=== PATIENT | male | born 1975 | race Caucasian/White ===

== ENCOUNTER 2020-09-02 21:44 | Emergency (ER) | payer OTHER, BC ==
[~2020-09-02] VITALS: Ht 172.7 cm; Wt 117.7 kg
[2020-09-02 21:53] VITALS: BP 139/73; Ht 172.7 cm; Wt 117.7 kg
[2020-09-02] MEDS ORDERED: ALBUTEROL SULF8.5 GM INH (21:55)
[2020-09-02 22:24] LABS: BASOPHILS 0.4 % (0-2); HEMATOCRIT 46.9 % (42.0-54.0); HEMOGLOBIN 16.3 g/dL (13.5-17.5); MCH 29.6 pg (26.0-34.0); MCHC 34.7 g/dL (31.0-37.0); MCV 85.3 fL (80.0-100.0); MEAN PLATELET VOLUME 7.2 fL (7.4-10.4); MONOCYTES 6.9 % (2-11); NEUTROPHILS 65.7 % (40-80); PLATELET COUNT 254 10x3/uL (130-400); RBC 5.49 10x6/uL (4.20-6.10); RDW 13.8 % (11.5-14.5); WBC 6.7 10x3/uL (4.8-10.8)
[2020-09-02 22:34] LABS: ANION GAP 9.6 mmol/L (8-16); CALCIUM 8.4 mg/dL (8.5-10.1); CARBON DIOXIDE 31.2 mmol/L (21.0-32.0); CREATININE - SERUM 1.3 mg/dL (0.6-1.3); POTASSIUM - SERUM 3.8 mmol/L (3.5-5.1)
[2020-09-02 22:40] LABS: ALBUMIN 3.8 g/dL (3.4-5.0); BILIRUBIN - TOTAL 0.7 mg/dL (0.2-1.3); PROTEIN - SERUM 7.8 g/dL (6.4-8.2)
[2020-09-02 22:44] LABS: SARS-CoV-2 ANTIGEN NEGATIVE- SARS-COV-2 (NEGATIVE)
[2020-09-02 22:59] LABS: BILIRUBIN NEGATIVE (NEGATIVE); KETONE NEGATIVE (NEGATIVE); NITRITE NEGATIVE (NEGATIVE); UROBILINOGEN NORMAL mg/dL (< 2)
[2020-09-02 23:08] LABS: UDS - AMPHET NEGATIVE QUAL (NEGATIVE); UDS - BARB NEGATIVE QUAL (NEGATIVE); UDS - BENZO NEGATIVE QUAL (NEGATIVE); UDS - COCAINE NEGATIVE QUAL (NEGATIVE); UDS - OPIATE NEGATIVE QUAL (NEGATIVE); UDS - PCP NEGATIVE QUAL (NEGATIVE); UDS - THC NEGATIVE QUAL (NEGATIVE)
--- NOTE | 2020-09-02 23:32 | NUR ---
DR REYES NOTIFIED OF PT's BEHAVIOR AND ASSESSMENT RESULTS, PT IS AL OW RISK PER DR REYES. DR REYES STATED TO GIVE RESOURCES TO PT A TIME OF DISCHARGE. NO FURTHER ORDERS AT THIS TIME. RESOURCES REVEIWED WITH PT AND HE VERBALIZED UNDERSTANDING.
== END 2020-09-03 00:58 ==
LOC: D.ER 21:44
PROVIDERS: Student in an Organized Health Care Education/Training Program
DX: R45.851 Suicidal ideations (principal); J45.909 Unspecified asthma, uncomplicated